=== PATIENT | male | born 1975 | race Caucasian/White ===

== ENCOUNTER → 2016-10-07 | Outpatient (CLI) | payer OTHER | DX: R05 Cough (principal); J98.4 Other disorders of lung | CPT/HCPCS: 71020 ==

== ENCOUNTER → 2022-03-25 | Outpatient (CLI) | payer OTHER ==
[~2022-03-25] MED LIST: NORCO 5-325 TA1 EACH PO; PROTONIX40 MG PO; ZOFRAN4 MG PO
== END ==
LOC: SLEEP 14:26
DX: G47.33 Obstructive sleep apnea (adult) (pediatric) (principal); G25.81 Restless legs syndrome
CPT/HCPCS: 95811